=== PATIENT | female | born 1960 | race Caucasian/White ===

== ENCOUNTER → 2016-04-30 | Outpatient (CLI) | payer BC | END | disposition home or self-care (01) | LOC: C.PAPS 10:43 | PROVIDERS: ATTEND Obstetrics & Gynecology | DX: Z01.411 Encounter for gynecological examination (general) (routine) with abnormal findings (principal); R87.610 Atypical squamous cells of undetermined significance on cytologic smear of cervix (ASC-US) ==

== ENCOUNTER → 2016-08-31 | Outpatient (CLI) | payer BC ==
--- NOTE | 2016-09-10 16:06 | MAMMOGRAPHY REPORT ---
THIS REPORT HAS BEEN AMENDED. BILATERAL DIGITAL SCREENING MAMMOGRAM TOMOSYNTHESIS WITH CAD: 08/31/2016 CLINICAL HISTORY: Routine screening. Patient has no complaints. TECHNIQUE: Breast tomosynthesis in addition to standard 2D mammography was performed. Current study was also evaluated with a Computer Aided Detection (CAD) system. COMPARISON: No prior exams were available for comparison. BREAST COMPOSITION: The tissue of both breasts is heterogeneously dense, which may obscure small mas ses. FINDINGS: There is 0.5 mm nodular asymmetry in the lateral posterior right breast, only seen on the CC view and a 5.4 mm nodular asymmetry in the medial, middle one third of the left breast, only seen on the CC view, for which comparison to prior outside mammograms would be useful to assess stability. If the outside exams are not obtained in a timely manner, additional spot compression tomosynthesis views and possibly ultrasound are recommended. There are a few benign-appearing round microcalcifications in the right breast. No other suspicious mass, focal area of architectural distortion or suspicious microcalcifications are seen bilaterally. IMPRESSION: ACR BI-RADS CATEGORY 0: INCOMPLETE EVALUATION: NEED ADDITIONAL IMAGING EVALUATION The 4.5 mm nodular asymmetry in the lateral right breast, and 5.4 mm nodular asymmetry in the medial left breast need comparison to prior outside mammograms to assess stability. If the outside exams are not obtained in a timely manner, additional spot compression tomosynthesis views and possibly ultras ound are recommended. The patient will be called to schedule an appointment. Approximately 10% of breast cancers are not detected with mammography. A negative mammographic report should not delay biopsy if a clinically suggestive mass is present. Yani Gant M.D. ay/:09/10/2016 15:15:07 Operator Coating Furnace: Yesika WAN(Aisha)(Stephen), [facility] letter sent: Need Priors 0 BI-RADS Code: ACR BI-RADS Category 0: Incomplete Evaluation: Need Additional Imaging Evaluation AMENDMENT: 10/02/2016 Yani Gant M.D. Prior outside mammograms dated 01/31/2010, 09/28/2011, 05/12/2013, 07/29/2014, 08/19/2015 became avai lable for review. The nodular asymmetry in the lateral posterior right breast and medial left breast best seen on the CC views remain increasingly conspicuous compared to the prior outside mammograms. Although they could represent normal overlapping fibroglandular tissue, further evaluation with spot compression tomosynthesis views and possibly ultrasound are recommended. Amended BI-RADS: ACR BI-RADS Category 0: Incomplete Evaluation: Need Additional Imaging Evaluation letter sent: Addl Imaging 0
== END | disposition home or self-care (01) ==
LOC: C.MAMM 09:46
PROVIDERS: ATTEND Obstetrics & Gynecology
DX: Z12.31 Encounter for screening mammogram for malignant neoplasm of breast (principal); N64.89 Other specified disorders of breast

== ENCOUNTER → 2016-10-10 | Outpatient (CLI) | payer BC ==
--- NOTE | 2016-10-10 15:19 | MAMMOGRAPHY REPORT ---
BILATERAL DIGITAL DIAGNOSTIC MAMMOGRAM TOMOSYNTHESIS AND TARGETED RIGHT ULTRASOUND: 10/10/2016 CLINICAL HISTORY: Callback from screening mammogram for bilateral asymmetries. The patient reports a family history of breast cancer with her mother diagnosed in her 80s, and a maternal aunt. TECHNIQUE: Breast tomosynthesis in addition to standard 2D mammography was performed. Spot compress ion bilateral CC and MLO 2-D and tomosynthesis images were obtained. COMPARISON: Comparison is made to exams dated: 08/31/2016 mammogram - [facility], mammogram, 08/19/2015 mammogram, 05/12/2013 mammogram, 01/31/2010 mammogram, and 09/28/2011 terry mogram. BREAST COMPOSITION: The tissue of the right breast is almost entirely fatty. The tissue of the left breast is heterogeneously dense, which may obscure small masses. FINDINGS: Spot compression views of the right breast demonstrate a persistent possible 5 mm lobulate d mass within the right lateral breast, seen on the tomosynthesis images only, not clearly evident on the MLO view. The previously described nodular asymmetry in the left medial breast on the cc view e ffaces to a baseline appearance on the additional spot compression views, and is benign and compatibl e with normal fibroglandular tissue. Targeted ultrasound was performed of the right lateral breast in the region of the possible mammograp hic mass. In the right breast at 9:00, 3 cm from the nipple, there is a lobulated circumscribed anec hoic mass with a few thin internal septations, measuring 4 x 3 x 4 mm. This is felt to correspond wi th the mammographic mass and is consistent with a benign cyst. No suspicious solid masses were evide nt. IMPRESSION: ACR BI-RADS CATEGORY 2: BENIGN, TARGETED ULTRASOUND ACR BI-RADS CATEGORY 2: BENIGN Small 4 mm benign cyst in the right breast at 9:00 on ultrasound, which corresponds with the mammogra phic mass. The left breast asymmetry effaces on the additional views, and is benign and compatible w ith normal fibroglandular tissue. There is no mammographic or targeted sonographic evidence of malig brittny. Return to annual mammogram screening schedule is recommended, due August 2017. The patient has been verbally notified of the results. Approximately 10% of breast cancers are not detected with mammography. A negative mammographic report should not delay biopsy if a clinically suggestive mass is present. Enriqueta Ahumada M.D. ah/:10/10/2016 15:05:56 Pictures Editor: Yesika MONTIEL)(Stephen), [facility] letter sent: Normal 1/2 BI-RADS Code: ACR BI-RADS Category 2: Benign Ultrasound BI-RADS: ACR BI-RADS Category 2: Benign
== END | disposition home or self-care (01) ==
LOC: C.MAMM 13:10
PROVIDERS: ATTEND Obstetrics & Gynecology
DX: R92.8 Other abnormal and inconclusive findings on diagnostic imaging of breast (principal); N83.201 Unspecified ovarian cyst, right side

== ENCOUNTER → 2017-05-02 | Outpatient (CLI) | payer OTHER | END | disposition home or self-care (01) | LOC: C.PAPS 14:34 | PROVIDERS: ATTEND Obstetrics & Gynecology | DX: Z01.411 Encounter for gynecological examination (general) (routine) with abnormal findings (principal) ==

== ENCOUNTER → 2017-06-06 | Outpatient (CLI) | payer OTHER | END | disposition home or self-care (01) | LOC: C.PATHSPEC 14:21 | PROVIDERS: ATTEND Obstetrics & Gynecology | DX: R87.610 Atypical squamous cells of undetermined significance on cytologic smear of cervix (ASC-US) (principal); N72 Inflammatory disease of cervix uteri ==

== ENCOUNTER → 2017-10-08 | Outpatient (CLI) | payer OTHER ==
[~2017-10-08] MED LIST: CETI10TA84 PO; LEVO100T PO; LISD50CA4 PO; MULT-506 PO; OMEG10007 PO; SERT25TA PO
[2017-10-08 12:36] LABS: HEMATOCRIT 39.4 % (37-47); HEMOGLOBIN 13.1 g/dL (12.0-16.0); IG# 0.01 K/uL (0.00-0.02); LYMPH % 26.2 %; LYMPH ABS # 1.52 K/uL (1.2-3.4); MEAN CELL VOLUME 89.3 fL (80-100); MEAN CORPUSCULAR HEMOGLOBIN 29.7 pg (25-34); MEAN CORPUSCULAR HGB CONC 33.2 g/dl (32-36); MEAN PLATELET VOLUME 9.5 fL (7.4-10.4); MONO % 9.3 %; MONO ABS # 0.54 K/uL (0.11-0.59); NEUT % 64.3 %; NEUT ABS # 3.74 K/uL (1.4-6.5); PLATELET COUNT 222 K/uL (130-400); WHITE BLOOD COUNT 5.81 K/uL (4.8-10.8)
== END | disposition home or self-care (01) ==
LOC: C.LAB1850 11:37
PROVIDERS: ATTEND Obstetrics & Gynecology
DX: Z01.818 Encounter for other preprocedural examination (principal)

== ENCOUNTER → 2017-10-09 | Day surgery (SDC) | payer OTHER ==
[2017-08-28 14:07] VITALS: Ht 162.6 cm; Wt 67.3 kg
[~2017-10-09] VITALS: Ht 162.6 cm; Wt 67.3 kg
[~2017-10-09] MED LIST changes: +ACETIC ACID 4% (WHITE VINEGAR) 30ML ONE; +ATROPINE SULFATE 0.1 MG/ML 5ML SYR IV PRN; +DEXAMETHASONE SOD INJ 4 MG/ML VIAL ONE; +EpHEDrine SULFATE 50MG/5ML SYR ONE; +EpHEDrine SULFATE INJ 50 MG/ML AMP IV PRN; +FENTANYL CITRATE INJ 50 MCG/1 ML 2 ML VIAL IV PRN; +FENTANYL CITRATE INJ 50 MCG/1 ML 2 ML VIAL ONE; +FERRIC SUBSULFATE 8 GM VIAL ONE; +FLUMAZENIL 0.1 MG/1 ML 10 ML VIAL IV PRN; +HYDROmorphone INJ 2 MG/ML SYR/VIAL IV PRN; +IODINE SOLN STRONG 14 ML ONE; +LABETALOL HCL IV 5 MG/ML 20ML IV PRN; +LACTATED RINGER'S 1000ML 1,000 ML IV SCH; +LIDOCAINE HCL 2% 2 ML VIAL (20MG/ML) ONE; +LIDOCAINE/EPINEPHRINE 1% 20 ML VIAL ONE; +MEPERIDINE HCL 25 MG/ML CARP IV PRN; +MIDAZOLAM HCL 1 MG/ML 2ML VIAL ONE; +NALOXONE HCL 0.4 MG/1 ML VIAL/CARP IV PRN; +ONDANSETRON INJ 2 MG/ML 2 ML VIAL IV PRN; +ONDANSETRON INJ 2 MG/ML 2 ML VIAL ONE; +OXYCODONE/ACETAMINOPHEN 5-325 TAB PO PRN; +PHENYLEPHRINE 100MCG/ML 5ML SYR IV PRN; +PROMETHAZINE HCL INJ 25 MG in SODIUM CHLORIDE 0.9% 50ML 50 ML IV PRN; +PROPOFOL IV EMULSION 10 MG/ML 20 ML VIAL ONE; +SCOPOLAMINE 1.5 MG TDSY TD ONE; +SODIUM CHLORIDE 0.9% 1000ML 1,000 ML IV SCH
--- NOTE | 2017-10-09 11:50 | History & Physical Bridge - SC ---
H&P Re-Evaluation Bridge Note: I have examined the patient, reviewed the History & Physical and in the interval since the performance of the History & Physical I have noted the following changes of clinical significance: No changes noted
--- NOTE | 2017-10-09 12:29 | [facility] Post Operative Brief Note ---
Immediate Operative Summary Operative Date Oct 09, 2017. Pre-Operative Diagnosis Cervical Polyp, Ascus of Cervix with Negative High Risk Post-Operative Diagnosis same Procedure(s) Performed Loop Electrosurgical Excision Procedure Surgeon Dr. Akin Madera Media Supervisor Surgeon(s) 0 Estimated Blood Loss 0ml Findings Consistent with Post-Op Diagnosis Specimens ectocervix, endocervical curettage Drains None Anesthesia Type General Complication(s) none Disposition Accompanied Pt To Recover: no Disposition: Recovery Room / PACU
--- NOTE | 2017-10-09 12:31 | Discharge Instructions-SurgCtr ---
Discharge Instructions Date of Service Oct 09, 2017. Visit Reason for Visit: Ascus Of Cervix With Negative High Risk, cervical polyp Discharge Discharge Diagnosis / Problem: same Discharge Goals Goal(s): Diagnostic testing, Therapeutic intervention Activity Recommendations Activity Limitations: per Instructions/Follow-up section Anesthesia . Post Anesthesia Instructions: If you have had General Anesthesia or IV Sedation: * Do not drive today. * Resume driving when surgeon permits. * Do not make important decisions or sign legal documents today. * Call surgeon for: 1. Temperature elevations greater than 101 degrees F. 2. Uncontrollable pain. 3. Excessive bleeding. 4. Persistent nausea and vomiting. 5. Medication intolerance (nausea, vomiting or rash). * For nausea and vomiting use only clear liquids such as: tea, soda, bouillon until nausea subsides, then gradually increase diet as tolerated. * If you have any concerns or questions, call your surgeon's office. If physician is unavailable and it is an emergency, call 911 or go to the nearest emergency room. . Instructions / Follow-Up Instructions / Follow-Up ACTIVITY RECOMMENDATIONS: * Avoid tampons, douching, hot tubs, pools, and intercourse until bleeding has stopped. * May shower as usual. * No strenuous activity for 24-48 hours. After 24-48 hours, you may do anything you feel like doing (driving and sports are okay). SPECIAL CARE INSTRUCTIONS: Special Diet: * Mild nausea may occur in the immediate post-operative period. * Take clear liquids such as tea, cola or bouillon until all nausea has subsided; you may then resume your normal diet. Special Care: * Light bleeding and vaginal spotting can last from a few days to 3-4 weeks. Call your doctor if bleeding becomes heavier than the heaviest part of your period. * Check your temperature twice a day for one week. If it goes above 100.4 degrees Fahrenheit (38.0 Celsius), notify your doctor. * Call your doctor's office for an appointment for 2 weeks after your surgery. FOLLOW-UP VISIT: Call your doctor's office for an appointment for 2 weeks after your surgery. Diet Recommendations Home Diet: resume previous diet Procedures Procedures Performed: Loop Electrosurgical Excision Procedure Pending Studies Studies pending at discharge: yes List of pending studies: pathology Medical Emergencies . Who to Call and When: Medical Emergencies: If at any time you feel your situation is an emergency, please call 911 immediately. . Non-Emergent Contact Non-Emergency issues call your: Primary Care Provider, Ager Tender . . "Provider Documentation" section prepared by Milena Madera. .
--- NOTE | 2017-10-09 12:36 | [facility] Operative Report ---
Operative Report Operative Date Oct 09, 2017. Pre-Operative Diagnosis Cervical Polyp, Ascus of Cervix with Negative High Risk Post-Operative Diagnosis same Procedure(s) Performed Loop Electrosurgical Excision Procedure Surgeon Dr. Akin Madera Stylist Assistant Surgeon(s) 0 Estimated Blood Loss 0ml Findings Normal-appearing cervix, with application of acetic acid. There is a cervical polyp-like lesion in the cervical os. Specimens ectocervix, endocervical curettage Drains None Anesthesia Type General Complication(s) none Disposition no Recovery Room / PACU Indications 57-year-old with recurrent ASCUS Pap smear with negative HPV. Colposcopy was negative for dysplasia, there was a notation of chronic inflammation. Of note, cervical polyp seen on exam. Description of Procedure Patient was seen in the preoperative holding area, where risks benefits alternatives to surgery were reviewed. She elected to proceed with the case. All questions were answered. She previously signed informed consent in the office under no duress. Taken to the operating room where general anesthesia was administered. She was prepared and draped in usual sterile fashion with feet in candycane stirrups in the dorsal lithotomy position. Timeout was confirmed. A rubberized speculum was placed in the vagina, cervix was visualized, the cervix and vagina were swabbed with acetic acid. 2 mL of 1% lidocaine with epinephrine were injected at each neurovascular bundle at 3:00 and 9:00. Next, using loop electrode, the ectocervix was removed, ECC was performed, ball- tipped cautery was used to obtain excellent hemostasis. Both specimens were handed off to be sent to pathology. Patient was taken to recovery area in stable and good condition. Sponge and instrument and needle counts were correct 2 at the conclusion of the case. I attest to the content of the Intraoperative Record and any orders documented therein. Any exceptions are noted below.
--- NOTE | 2017-10-09 13:11 | Anesthesia Progress Nt - [facility] ---
Anesthesia Post Op Note Date & Time Oct 09, 2017 at 13:10 Vital Signs Pain Intensity: 0 Vital Signs Past 12 Hours Date Time Temp Pulse Resp B/P (MAP) Pulse Ox O2 Delivery O2 Flow Rate FiO2 10/09/17 13:05 123/74 10/09/17 13:04 36.7 71 20 123/74 99 Room Air 10/09/17 13:03 68 15 99 10/09/17 13:03 68 15 10/09/17 13:02 75 22 10/09/17 13:02 74 22 99 10/09/17 13:00 118/68 10/09/17 12:57 76 22 10/09/17 12:57 77 22 99 10/09/17 12:55 108/64 10/09/17 12:52 75 15 10/09/17 12:52 76 15 98 10/09/17 12:51 72 16 100 10/09/17 12:51 72 16 10/09/17 12:50 123/62 10/09/17 12:49 75 14 10/09/17 12:49 78 14 100 10/09/17 12:48 79 19 10/09/17 12:48 19 10/09/17 12:45 94/52 10/09/17 12:43 66 13 10/09/17 12:43 65 13 99 10/09/17 12:42 66 12 10/09/17 12:42 66 12 99 10/09/17 12:40 93/50 10/09/17 12:37 65 15 10/09/17 12:37 66 15 98 10/09/17 12:35 91/51 10/09/17 12:33 89/52 10/09/17 12:32 36.3 65 12 89/52 97 Mask 8 10/09/17 11:19 37.1 69 18 114/82 (93) 100 Room Air Notes Mental Status: alert / awake / arousable, participated in evaluation Pt Amnestic to Procedure: Yes Nausea / Vomiting: adequately controlled Pain: adequately controlled Airway Patency, RR, SpO2: stable & adequate BP & HR: stable & adequate Hydration State: stable & adequate Anesthetic Complications: no major complications apparent
[2017-10-09 13:16] VITALS: TEMP 36.9
[2017-10-09 13:45] VITALS: BP 122/74; PULSE 60; O2SAT 98
== END | disposition home or self-care (01) ==
LOC: X.SURG 11:08
PROVIDERS: ATTEND Obstetrics & Gynecology
DX: N84.1 Polyp of cervix uteri (principal); R87.610 Atypical squamous cells of undetermined significance on cytologic smear of cervix (ASC-US); E78.5 Hyperlipidemia, unspecified; F90.9 Attention-deficit hyperactivity disorder, unspecified type; Z79.899 Other long term (current) drug therapy; Z88.2 Allergy status to sulfonamides; N72 Inflammatory disease of cervix uteri